=== PATIENT | female | born 1960 | race Two or more races ===

== ENCOUNTER 2022-03-15 23:29 | Emergency (ER) | payer MEDICAID, OTHER ==
[~2022-03-15] VITALS: Ht 162.6 cm; Wt 68.0 kg
[2022-03-15 23:41] VITALS: BP 132/67
--- NOTE | 2022-03-15 23:41 | NUR ---
[id number] FROM [facility] C/O R FOOT PAIN
--- NOTE | 2022-03-15 23:48 | NUR ---
PT DID NOT WANT TO BE SEEN BY . DR. STELLA BECERRA AWARE.
== END 2022-03-16 00:19 | disposition left against medical advice (07) ==
LOC: ER 23:32
DX: Z53.21 Procedure and treatment not carried out due to patient leaving prior to being seen by health care provider (principal)

== ENCOUNTER 2022-04-20 02:27 | Emergency (ER) | payer MEDICAID ==
[~2022-04-20] VITALS: Ht 165.1 cm; Wt 77.1 kg
[2022-04-20 02:58] VITALS: BP 155/88
--- NOTE | 2022-04-20 06:48 | NUR ---
Patient discharged to home in stable condition. Written and verbal after care instructions given. Patient verbalizes understanding of instruction.
[2022-04-23] MEDS ORDERED: DOXY100C2 PO (07:45)
[2022-04-23] MEDS ORDERED: CLOT12CR TP (07:45)
[2022-04-23] MEDS ORDERED: AMOX-430 PO (07:45)
== END 2022-04-20 06:49 | disposition home or self-care (01) ==
LOC: ER 02:28
DX: S50.12XA Contusion of left forearm, initial encounter (principal); Z59.00 Homelessness unspecified; X58.XXXA Exposure to other specified factors, initial encounter; Y93.89 Activity, other specified; Y92.89 Other specified places as the place of occurrence of the external cause; Y99.8 Other external cause status
CPT/HCPCS: 73090-TC; 82962-TC

== ENCOUNTER 2022-04-21 03:33 | Emergency (ER) | payer MEDICAID ==
[~2022-04-21] VITALS: Ht 182.9 cm; Wt 99.8 kg
[2022-04-21 03:43] VITALS: BP 157/82
[2022-04-21] MEDS ORDERED: LORAZEPAM 1 MG TABLET PO ONE (04:00)
--- NOTE | 2022-04-21 04:09 | NUR ---
BACK FROM CT
--- NOTE | 2022-04-21 04:30 | NUR ---
Patient eloped from facility. ER MD notified.
[2022-04-23] MEDS ORDERED: AMOX-430 PO (07:45)
[2022-04-23] MEDS ORDERED: CLOT12CR TP (07:45)
[2022-04-23] MEDS ORDERED: DOXY100C2 PO (07:45)
== END 2022-04-21 04:40 | disposition left against medical advice (07) ==
LOC: ER 03:34
DX: S00.33XA Contusion of nose, initial encounter (principal); S50.12XA Contusion of left forearm, initial encounter; S00.81XA Abrasion of other part of head, initial encounter; S00.511A Abrasion of lip, initial encounter; Z59.00 Homelessness unspecified; Y08.89XA Assault by other specified means, initial encounter; Y93.89 Activity, other specified; Y92.89 Other specified places as the place of occurrence of the external cause; Y99.8 Other external cause status
CPT/HCPCS: 70450-TC; 70486-TC

== ENCOUNTER 2022-04-21 05:38 | Emergency (ER) | payer MEDICAID ==
[~2022-04-21] VITALS: Ht 182.9 cm; Wt 100.2 kg
[2022-04-21 06:11] VITALS: BP 134/70
[2022-04-23] MEDS ORDERED: AMOX-430 PO (07:45)
[2022-04-23] MEDS ORDERED: CLOT12CR TP (07:45)
[2022-04-23] MEDS ORDERED: DOXY100C2 PO (07:45)
== END 2022-04-21 06:56 | disposition home or self-care (01) ==
LOC: ER 05:39
DX: S00.81XA Abrasion of other part of head, initial encounter (principal); Z59.00 Homelessness unspecified; X58.XXXA Exposure to other specified factors, initial encounter; Y93.89 Activity, other specified; Y92.89 Other specified places as the place of occurrence of the external cause; Y99.8 Other external cause status